=== PATIENT | female | born 1975 | race Caucasian/White ===

== ENCOUNTER 2018-07-14 11:50 | Observation (INO) | payer BC ==
--- NOTE | 2018-07-14 13:34 | RAD REPORT ---
EXAM DESCRIPTION: CT - Ct Stroke Brain Wo Cont - 07/14/2018 1:20 pm CLINICAL HISTORY: Numbness COMPARISON: None. TECHNIQUE: Computed axial tomography of the head was obtained. Unenhanced and enhanced images obtain ed. 50 cc Isovue-[address] scans are performed using dose optimization technique as appropriate and may include automated exposure control or mA/KV adjustment according to patient size. FINDINGS: An intracranial bleed is not seen . The ventricles are normal in caliber. No extra-axial fluid collection is noted. No abnormal enhancement seen Fluid within the sinuses/ mastoids is not seen. IMPRESSION: No acute intracranial abnormality is seen. If patient's symptoms persist MRI of the bra in would be recommended. Zana Barnes of the emergency room was notified at 1:29 p.m. on July 14, 2018
[2018-07-14 13:35] LABS: Absolute Lymphocytes (CBC) 2.6 K/uL (0.7-4.9); Absolute Monocytes 0.6 K/uL (0.1-1.3); Absolute Neutrophil 6.1 K/uL (1.8-8.0); Basophils % 0.5 % (0-1.3); Eosinophils % 1.9 % (0-4.4); Hematocrit 46.8 % (36.0-45.0); Lymphocytes % 27.1 % (15.3-44.8); MPV 10.8 fL (7.6-11.3); Monocytes % 6.3 % (3.3-12.3); RBC Red Blood Cell Count 5.44 M/uL (3.86-4.86)
[2018-07-14 13:38] LABS: Protime INR 0.89
[2018-07-14] MEDS ORDERED: METOPROLOL TAR 25 MG TAB ONE (13:49)
[2018-07-14] MEDS ORDERED: FOLIC ACID 5 MG/ML VIAL ONE (13:50)
[2018-07-14] MEDS ORDERED: NA CHLORIDE 0.9% 1,000 ML ONE (13:50)
[2018-07-14] MEDS ORDERED: ASPIRIN 81 MG CHEWABLE TABLET ONE (13:52)
--- NOTE | 2018-07-14 13:52 | RAD REPORT ---
EXAM DESCRIPTION: Skyler Single View07/14/2018 1:38 pm CLINICAL HISTORY: Chest pain COMPARISON: none FINDINGS: The lungs appear clear of acute infiltrate. The heart is probably upper limits normal siz e IMPRESSION: No acute abnormalities displayed
[2018-07-14 13:56] LABS: ALT/SGPT 24 U/L (12-78); AST/SGOT 15 U/L (15-37); Albumin 3.6 g/dL (3.4-5.0); Alkaline Phosphatase 87 U/L (45-117); BUN Blood Urea Nitrogen 11 mg/dL (7-18); Bicarbonate 25 mmol/L (21-32); Bilirubin Direct 0.1 mg/dL (0-0.2); Bilirubin Total 0.5 mg/dL (0.2-1.0); Glucose Level 91 mg/dL (74-106); Magnesium 2.6 mg/dL (1.8-2.4); NT PRO-BNP 247 pg/mL (<125); Potassium 4.2 mmol/L (3.5-5.1); Protein, Total 7.1 g/dL (6.4-8.2); Sodium Level 143 mmol/L (136-145); Troponin (Emerg Dept Use Only) < 0.02 ng/mL (0.0-0.045)
[2018-07-14 14:06] LABS: Urine Blood NEGATIVE (NEG); Urine Glucose NEGATIVE (NEG); Urine Protein NEGATIVE (NEG)
--- NOTE | 2018-07-14 14:29 | EDPHYS ---
Physician Documentation [facility] Name: Susan Motta Age: 43 yrs Sex: Female : 1975 Arrival Date: 07/14/2018 Time: 11:54 Bed 17 Private MD: ED Physician Claude Hood HPI: 07/14 13:15 This 43 yrs old Female presents to ER via Ambulatory with complaints of Chest cp Pressure, Numbness Of Arm. 13:15 The patient or guardian reports chest pain that is located primarily in the anterior cp chest wall, bilaterally. 13:15 Onset: this morning. cp 13:15 The patient's problem is reported as paresthesias, right hand. Onset: The cp symptoms/episode began/occurred this morning. Duration: The episode is continuous. 13:15 Patient here with friend who reports patient had episode this morning at approximately cp 1000 or 1030 where patient was talking on phone and speech was not coherent. Patient not able to recall how long speech was incoherent, but feels back to normal. PRE BILLING CLINICIAN: 12:00 LMP N/A - Im going thru menopause but i had a period about 3 months ago tw2 Historical: - Allergies: 12:02 No Known Allergies; tw2 - Home Meds: 12:02 None [Active]; tw2 - PMHx: 12:02 Hypertension; tw2 - PSHx: 12:02 Cholecystectomy; Tubal ligation; Hernia repair; tw2 - Immunization history:: Adult Immunizations. - Social history:: Smoking status: Patient uses tobacco products, smokes one pack cigarettes per day. - Ebola Screening: : Patient denies travel to an Ebola-affected area in the 21 days before illness onset. ROS: 13:20 Cardiovascular: Positive for chest pain, Negative for edema, palpitations. cp 13:20 Constitutional: Negative for body aches, chills, fever, poor PO intake. cp 13:20 ENT: Negative for drainage from ear(s), ear pain, sore throat, difficulty swallowing, difficulty handling secretions. 13:20 Respiratory: Negative for cough, shortness of breath, wheezing. 13:20 Abdomen/GI: Negative for abdominal pain, nausea, vomiting, and diarrhea. Exam: 13:25 Constitutional: The patient appears in no acute distress, alert, awake, cp non-diaphoretic, non-toxic, well developed, well nourished. 13:25 Head/Face: Normocephalic, atraumatic. Eyes: Pupils equal round and reactive to light, cp extra-ocular motions intact. Lids and lashes normal. Conjunctiva and sclera are non-icteric and not injected. Cornea within normal limits. Periorbital areas with no swelling, redness, or edema. ENT: Nares patent. No nasal discharge, no septal abnormalities noted. Tympanic membranes are normal and external auditory canals are clear. Oropharynx with no redness, swelling, or masses, exudates, or evidence of obstruction, uvula midline. Mucous membranes moist. Chest/axilla: Normal chest wall appearance and motion. Nontender with no deformity. No lesions are appreciated. 13:25 Cardiovascular: Rate: normal, Rhythm: regular, Pulses: Pulses are 2+ in right radial artery and left radial artery. Heart sounds: murmur, not appreciated, Edema: is not appreciated, JVD: is not appreciated. 13:25 Respiratory: the patient does not display signs of respiratory distress, Respirations: normal, no use of accessory muscles, no retractions, no splinting, no tachypnea, labored breathing, is not present, Breath sounds: are clear throughout, no decreased breath sounds, no stridor, no wheezing. 13:25 Abdomen/GI: Inspection: abdomen appears normal, Bowel sounds: active, all quadrants, Palpation: abdomen is soft and non-tender, in all quadrants. 13:25 Back: pain, is absent, ROM is normal. 13:25 Musculoskeletal/extremity: Exam is negative for calf tenderness, deformity, edema, injury. 13:25 Skin: no rash present. 13:25 Neuro: Orientation: is normal, Mentation: is normal, Cerebellar function: is grossly normal, Motor: moves all fours, strength is normal, Sensation: light touch is decreased in the right hand. 13:30 Radiologist reports: head CT negative for acute stroke cp Vital Signs: 12:00 BP 195 / 111; Pulse 84; Resp 17; Temp 98.2(TE); Pulse Ox 100% on R/A; Weight 108.86 kg tw2 (R); Pain 8/10; 13:31 BP 173 / 93; Pulse 72 MON; Resp 19; Pulse Ox 97% on R/A; sv 14:41 BP 154 / 78; Pulse 55 MON; Resp 13; Pulse Ox 99% ; sv 14:50 BP 171 / 96 RA Supine; em1 13:31 Sinus Rhythm sv 14:41 Sinus bradycardia sv NIH Stroke Scale Scores: 13:20 NIHSS Score: 1 cp 13:25 NIHSS Score: 1 sv MDM: 13:00 Patient medically screened. cp 13:30 Differential diagnosis: abnormal EKG, acute myocardial infarction, CVA, TIA. cp 13:35 ED course: VSS. NIH stroke at 1 due to paresthesias of right hand, will not administer cp tpa at this point but continue to monitor. 14:15 Data reviewed: vital signs, nurses notes, lab test result(s), EKG, radiologic studies, cp CT scan, plain films. 14:15 The patient was given aspirin in the Emergency Department. cp 14:15 ED course: Patient reports completely resolved at this time. cp 07/14 13:10 Order name: Basic Metabolic Panel; Complete Time: 14:12 cp 07/14 14:13 Interpretation: Normal except: CL 110. cp 07/14 13:10 Order name: CBC with Diff; Complete Time: 14:12 cp 07/14 13:10 Order name: LFT's; Complete Time: 14:12 cp 07/14 13:10 Order name: Magnesium; Complete Time: 14:12 cp 07/14 13:10 Order name: NT PRO-BNP; Complete Time: 14:12 cp 07/14 13:10 Order name: PT-INR; Complete Time: 14:12 cp 07/14 13:09 Order name: CT Stroke Brain w/o Contrast; Complete Time: 14:12 sv 07/14 13:10 Order name: Troponin (emerg Dept Use Only); Complete Time: 14:12 cp 07/14 13:44 Order name: Urine Dipstick--Ancillary (enter results); Complete Time: 14:12 bd 07/14 13:44 Order name: Urine --Ancillary (enter results); Complete Time: 14:12 bd 07/14 14:41 Order name: Urine Drug Screen EDVT 07/14 14:41 Order name: Thyroid Stimulating Hormone EDVT 07/14 14:41 Order name: Lipid Profile EDVT 07/14 14:41 Order name: Lipid Profile EDVT 07/14 13:10 Order name: XRAY Chest (1 view); Complete Time: 14:12 cp 07/14 13:10 Order name: EKG; Complete Time: 13:10 cp 07/14 13:10 Order name: Cardiac monitoring; Complete Time: 13:48 cp 07/14 13:10 Order name: EKG - Nurse/Tech; Complete Time: 13:48 cp 07/14 14:32 Order name: CONS Physician Consult [facility] 07/14 14:41 Order name: Occupational Therapy Consult [facility] 07/14 14:41 Order name: Physical Therapy Consult [facility] 07/14 14:41 Order name: Speech Therapy Consult [facility] 07/14 14:41 Order name: Carotid Artery Bilateral [facility] 07/14 14:41 Order name: NPO [facility] 07/14 14:41 Order name: Stroke Protocol [facility] 07/14 13:10 Order name: IV Saline Lock; Complete Time: 13:48 cp 07/14 13:10 Order name: Labs collected and sent; Complete Time: 13:48 cp 07/14 13:10 Order name: O2 Per Protocol; Complete Time: 13:48 cp 07/14 13:10 Order name: O2 Sat Monitoring; Complete Time: 13:48 cp 07/14 14:25 Order name: Blood Pressure Recheck: bilateral extremities; Complete Time: 14:51 cp Administered Medications: 13:47 Drug: foLIC Acid 1 mg Route: IVPB; Site: right antecubital; sv 13:48 Drug: NS 0.9% 1000 ml Route: IV; Rate: 1 bolus; Site: right antecubital; sv 14:55 Follow up: Response: No adverse reaction; IV Status: Completed infusion; IV Intake: sv 1000ml 13:48 Drug: Aspirin Chewable Tablet 324 mg Route: PO; sv 14:46 Follow up: Response: No adverse reaction sv 13:48 Drug: Metoprolol 25 mg Route: PO; sv 14:45 Follow up: Response: No adverse reaction; Blood pressure is lowered sv Point of Care Testing: Blood Glucose: 12:23 Blood Glucose: 89 mg/dL; sv Ranges: Critical Glucose Levels:Adult <50 mg/dl or >400 mg/dl <40 mg/dl or >180 mg/dl Disposition: 17:15 Chart complete. cp 17:19 Co-signature as Attending Physician, Claude Hood MD I agree with the assessment and kdr plan of care. Disposition: 07/14/18 14:28 Hospitalization ordered by Mike Thacker for Observation. Preliminary diagnosis are Transient cerebral ischemic attack, unspecified, Chest pain, unspecified. - Bed requested for Telemetry/MedSurg (observation). - Status is Observation. sv - Condition is Stable. - Problem is new. - Symptoms have improved. UTI on Admission? No NIH Stroke Scale - NIH Stroke Score Date: 07/14/2018 Time: 13:20 Total Score = 1 1a. Level of Consciousness (LOC) - 0(Alert) 1b. Level of Consciousness (LOC) (Year \T\ Age) - 0(Both) 1c. LOC Commands (Open \T\ Closes Eyes/Consulting Psychiatrist) - 0(Both) 2. Best Gaze (Lateral Gaze Paresis) - 0(Normal) 3. Visual Field Loss - 0(No visual loss) 4. Facial Palsy - 0(Normal) 5a. Left Arm: Motor (10-second hold) - 0(No drift) 5b. Right Arm: Motor (10-second hold) - 0(No drift) 6a. Left Leg: Motor (5-second hold - always test supine) - 0(No drift) 6b. Right Leg: Motor (5-second hold - always test supine) - 0(No drift) 7. Limb Ataxia (finger/nose \T\ heel/anderson - test with eyes open) - 0(Absent) 8. Sensory Loss (pinprick arms/legs/face) - 1(Mild to moderate loss) 9. Best Language: Aphasia (description/naming/reading) - 0(No aphasia) 10. Dysarthria (speech clarity - read or repeat words) - 0(Normal) 11. Extinction and Inattention (visual/tactile/auditory/spatial/personal) - 0(No abnormality) Initials: cp NIH Stroke Scale - NIH Stroke Score Date: 07/14/2018 Time: 13:25 Total Score = 1 1a. Level of Consciousness (LOC) - 0(Alert) 1b. Level of Consciousness (LOC) (Year \T\ Age) - 0(Both) 1c. LOC Commands (Open \T\ Closes Eyes/Consulting Psychiatrist) - 0(Both) 2. Best Gaze (Lateral Gaze Paresis) - 0(Normal) 3. Visual Field Loss - 0(No visual loss) 4. Facial Palsy - 0(Normal) 5a. Left Arm: Motor (10-second hold) - 0(No drift) 5b. Right Arm: Motor (10-second hold) - 0(No drift) 6a. Left Leg: Motor (5-second hold - always test supine) - 0(No drift) 6b. Right Leg: Motor (5-second hold - always test supine) - 0(No drift) 7. Limb Ataxia (finger/nose \T\ heel/anderson - test with eyes open) - 0(Absent) 8. Sensory Loss (pinprick arms/legs/face) - 1(Mild to moderate loss) 9. Best Language: Aphasia (description/naming/reading) - 0(No aphasia) 10. Dysarthria (speech clarity - read or repeat words) - 0(Normal) 11. Extinction and Inattention (visual/tactile/auditory/spatial/personal) - 0(No abnormality) Initials: sv Signatures: Dispatcher [employer] EDMS Taylor Jones Stephanie, RN RN sv Claude Hood MD MD [facility] Yovany Barnes PA PA Melissa Maldonado, GLENIS RN tw2 Corrections: (The following items were deleted from the chart) 13:19 13:10 Head Brain Wo Cont+CT.RAD.BRZ ordered. EDMS EDMS 16:35 14:28 Hospitalization Ordered by Mike Thacker MD for Observation. Preliminary bd diagnosis is Transient cerebral ischemic attack, unspecified; Chest pain, unspecified. Bed requested for Telemetry/MedSurg (observation). Status is Observation. Condition is Stable. Problem is new. Symptoms have improved. UTI on Admission? No. cp 17:03 16:35 07/14/2018 14:28 Hospitalization Ordered by Mike Thacker MD for sv Observation. Preliminary diagnosis is Transient cerebral ischemic attack, unspecified; Chest pain, unspecified. Bed requested for Telemetry/MedSurg (observation). Status is Observation. Condition is Stable. Problem is new. Symptoms have improved. UTI on Admission? No. bd
--- NOTE | 2018-07-14 14:29 | ER ---
Nurse's Notes [facility] Name: Susan Motta Age: 43 yrs Sex: Female : 1975 Arrival Date: 07/14/2018 Time: 11:54 Bed 17 Private MD: Diagnosis: Transient cerebral ischemic attack, unspecified;Chest pain, unspecified Presentation: 07/14 11:59 Presenting complaint: Patient states: i just feel funny, it started this morning, my tw2 chest feels like i have something sitting on it, my head hurts really bad, i feel like my heart is beating really hard, my right finger tips feel numb, and i feel nauseous. Transition of care: patient was not received from another setting of care. Onset of symptoms was July 14, 2018. Risk Assessment: Do you want to hurt yourself or someone else? Patient reports no desire to harm self or others. Initial Sepsis Screen: Does the patient meet any 2 criteria? No. Patient's initial sepsis screen is negative. Does the patient have a suspected source of infection? No. Patient's initial sepsis screen is negative. Care prior to arrival: None. 11:59 Method Of Arrival: Ambulatory tw2 11:59 Acuity: ORTIZ 3 tw2 13:31 Acuity: ORTIZ 2 sv Triage Assessment: 12:01 General: Appears in no apparent distress. Behavior is anxious. Pain: Complains of pain tw2 in chest. Cardiovascular: Reports palpitations, shortness of breath, "pressure". GI: Reports nausea. ASSISTED LIVING ASSISTANT: 12:00 LMP N/A - Im going thru menopause but i had a period about 3 months ago tw2 Historical: - Allergies: 12:02 No Known Allergies; tw2 - Home Meds: 12:02 None [Active]; tw2 - PMHx: 12:02 Hypertension; tw2 - PSHx: 12:02 Cholecystectomy; Tubal ligation; Hernia repair; tw2 - Immunization history:: Adult Immunizations. - Social history:: Smoking status: Patient uses tobacco products, smokes one pack cigarettes per day. - Ebola Screening: : Patient denies travel to an Ebola-affected area in the 21 days before illness onset. Screenin:17 Abuse screen:. Abuse screen: Denies threats or abuse. Denies injuries from another. sv Nutritional screening: No deficits noted. Tuberculosis screening: No symptoms or risk factors identified. Fall Risk None identified. Assessment: 13:15 Reassessment: Code Stroke called. sv 13:15 General: Appears in no apparent distress. uncomfortable, well groomed, well developed, sv Behavior is calm, cooperative, appropriate for age. Pain: Complains of pain in top of head and forehead and anterior chest pain Pain does not radiate. Pain currently is 8 out of 10 on a pain scale. Quality of pain is described as pressure, Pain began around [id number] today Is continuous. Neuro: Level of Consciousness is awake, alert, obeys commands, Oriented to person, place, time, situation, Public Accountant are equal bilaterally Moves all extremities. Full function Gait is steady, Speech is normal, Facial symmetry appears normal, Facial symmetry: tongue is midline, Reports headache frontal area, numbness in right thumb, right middle finger, right ring finger, right little finger and Right index finger "my right hand feels cold as well." Spouse stated that when she called her on her way to come home for lunch the pt was talking differently.. Respiratory: Airway is patent Respiratory effort is even, unlabored, Respiratory pattern is regular, symmetrical, Denies shortness of breath. Derm: Skin is pink, warm \\T\\ dry. 14:00 Reassessment: Patient appears in no apparent distress at this time. No changes from sv previously documented assessment. Patient and/or family updated on plan of care and expected duration. Pain level reassessed. Patient is alert, oriented x 3, equal unlabored respirations, skin warm/dry/pink. 15:56 Reassessment: Patient appears in no apparent distress at this time. No changes from sv previously documented assessment. Patient and/or family updated on plan of care and expected duration. Pain level reassessed. Patient is alert, oriented x 3, equal unlabored respirations, skin warm/dry/pink. Vital Signs: 12:00 BP 195 / 111; Pulse 84; Resp 17; Temp 98.2(TE); Pulse Ox 100% on R/A; Weight 108.86 kg tw2 (R); Pain 8/10; 13:31 BP 173 / 93; Pulse 72 MON; Resp 19; Pulse Ox 97% on R/A; sv 14:41 BP 154 / 78; Pulse 55 MON; Resp 13; Pulse Ox 99% ; sv 14:50 BP 171 / 96 RA Supine; em1 13:31 Sinus Rhythm sv 14:41 Sinus bradycardia sv NIH Stroke Scale Scores: 13:20 NIHSS Score: 1 cp 13:25 NIHSS Score: 1 sv ED Course: 11:54 Patient arrived in ED. mr 12:00 Triage completed. tw2 12:00 Arm band placed on. EKG completed in triage. Results shown to MD. tw2 12:12 EKG done, by environmental compliance technician. dt2 12:23 Initial lab(s) drawn, by me, sent to lab. Inserted saline lock: 20 gauge in right sv antecubital area, using aseptic technique. Blood collected. Flushed right antecubital with 5 ml normal saline. Patient maintains SpO2 saturation greater than 95% on room air. 13:00 Yovany aBrnes PA is PHCP. cp 13:00 Claude Hood MD is Attending Physician. cp 13:08 Ayleen Waddell, GLENIS is Primary Nurse. sv 13:15 Patient has correct armband on for positive identification. Placed in gown. Bed in low sv position. Call light in reach. Adult w/ patient. 13:[address] via stretcher. sv 13:20 CT Stroke Brain w/o Contrast In Process Unspecified. EDMS 13:[address] Patient [address] back from CT. sv 13:32 X-ray(s) taken. sv 13:38 XRAY Chest (1 view) In Process Unspecified. EDMS 14:28 Mike Thacker MD is Hospitalizing Provider. cp 14:46 Awaiting bed assignment. sv 16:45 No provider procedures requiring assistance completed. Patient admitted, IV remains in sv place. intact. Administered Medications: 13:47 Drug: foLIC Acid 1 mg Route: IVPB; Site: right antecubital; sv 13:48 Drug: NS 0.9% 1000 ml Route: IV; Rate: 1 bolus; Site: right antecubital; sv 14:55 Follow up: Response: No adverse reaction; IV Status: Completed infusion; IV Intake: sv 1000ml 13:48 Drug: Aspirin Chewable Tablet 324 mg Route: PO; sv 14:46 Follow up: Response: No adverse reaction sv 13:48 Drug: Metoprolol 25 mg Route: PO; sv 14:45 Follow up: Response: No adverse reaction; Blood pressure is lowered sv Point of Care Testing: Blood Glucose: 12:23 Blood Glucose: 89 mg/dL; sv Ranges: Intake: 14:55 IV: 1000ml; Total: 1000ml. sv Outcome: 14:28 Decision to Hospitalize by Provider. cp 16:44 Admitted to Tele accompanied by tech, family with patient, via wheelchair, room 429, sv with chart, Report called to Kian GALVNI 16:44 Condition: stable 16:44 Instructed on the need for admit. 17:03 Patient left the ED. sv NIH Stroke Scale - NIH Stroke Score Date: 07/14/2018 Time: 13:20 Total Score = 1 1a. Level of Consciousness (LOC) - 0(Alert) 1b. Level of Consciousness (LOC) (Year \\T\\ Age) - 0(Both) 1c. LOC Commands (Open \\T\\ Closes Eyes/Archival Studies Professor) - 0(Both) 2. Best Gaze (Lateral Gaze Paresis) - 0(Normal) 3. Visual Field Loss - 0(No visual loss) 4. Facial Palsy - 0(Normal) 5a. Left Arm: Motor (10-second hold) - 0(No drift) 5b. Right Arm: Motor (10-second hold) - 0(No drift) 6a. Left Leg: Motor (5-second hold - always test supine) - 0(No drift) 6b. Right Leg: Motor (5-second hold - always test supine) - 0(No drift) 7. Limb Ataxia (finger/nose \\T\\ heel/anderson - test with eyes open) - 0(Absent) 8. Sensory Loss (pinprick arms/legs/face) - 1(Mild to moderate loss) 9. Best Language: Aphasia (description/naming/reading) - 0(No aphasia) 10. Dysarthria (speech clarity - read or repeat words) - 0(Normal) 11. Extinction and Inattention (visual/tactile/auditory/spatial/personal) - 0(No abnormality) Initials: cp NIH Stroke Scale - NIH Stroke Score Date: 07/14/2018 Time: 13:25 Total Score = 1 1a. Level of Consciousness (LOC) - 0(Alert) 1b. Level of Consciousness (LOC) (Year \\T\\ Age) - 0(Both) 1c. LOC Commands (Open \\T\\ Closes Eyes/Archival Studies Professor) - 0(Both) 2. Best Gaze (Lateral Gaze Paresis) - 0(Normal) 3. Visual Field Loss - 0(No visual loss) 4. Facial Palsy - 0(Normal) 5a. Left Arm: Motor (10-second hold) - 0(No drift) 5b. Right Arm: Motor (10-second hold) - 0(No drift) 6a. Left Leg: Motor (5-second hold - always test supine) - 0(No drift) 6b. Right Leg: Motor (5-second hold - always test supine) - 0(No drift) 7. Limb Ataxia (finger/nose \\T\\ heel/anderson - test with eyes open) - 0(Absent) 8. Sensory Loss (pinprick arms/legs/face) - 1(Mild to moderate loss) 9. Best Language: Aphasia (description/naming/reading) - 0(No aphasia) 10. Dysarthria (speech clarity - read or repeat words) - 0(Normal) 11. Extinction and Inattention (visual/tactile/auditory/spatial/personal) - 0(No abnormality) Initials: sv Signatures: Dispatcher [employer] Ayleen To RN RN sv Shira Sinclair, [place] em1 Yovany Barnes PA PA Melissa Maldonado, GLENIS RN tw2 Shaneka Silver dt2 Corrections: (The following items were deleted from the chart) 16:45 16:45 Patient did not have IV access during this emergency room visit. sv sv
--- NOTE | 2018-07-14 15:34 | RAD REPORT ---
EXAM DESCRIPTION: US - CP - 07/14/2018 3:10 pm CLINICAL HISTORY: TIA, slurred speech COMPARISON: None. TECHNIQUE: Real-time sonographic evaluation of both carotid systems was performed. Johnson scale and Do ppler interrogation were performed with waveform tracing bilaterally. FINDINGS: Normal high resistance waveforms are noted in both external carotid arteries. The common c arotid arteries and internal carotid arteries show normal low resistance waveforms. Minimal plaquing changes are identifiable. The mid right internal carotid artery shows an elevated ve locity 116 cm/second. However, this is suspected to be artifact of technique and tortuosity of the mi d ICA. On visual inspection there is no significant disease at this site. This elevated velocity also creates artifactual elevation of the ICA/ CCA ratio. Velocity values and ratios on the left are with in normal range. Antegrade flow seen in both vertebral arteries. Velocity values and ratios were recorded and are retained in the patient's imaging records. IMPRESSION: Minimal atherosclerotic change in the right internal carotid artery. No evidence of a hemodynamically significant stenosis. The pronounced tortuosity of the midportion ri ght internal carotid artery creates artifactual velocity elevation.
[2018-07-14] MEDS: NA CHLORIDE 0.9% 1,000 ML IV SCH (17:26)
--- NOTE | 2018-07-14 17:47 | EKG ---
Test Date: 2018-07-14 Test Time: 12:02:[address] Magistrate: MICH MEASUREMENT RESULTS: Intervals: Rate: 81 MA: 128 QRSD: 92 QT: 384 QTc: 446 [place]: P: 20 MA: 128 QRS: -28 T: 33 INTERPRETIVE STATEMENTS: Normal sinus rhythm Possible Left atrial enlargement Borderline ECG No previous ECG available for comparison Electronically Signed On 07-14-18 17:46:19 CDT by Arsalan Garcia
[2018-07-14] MEDS ORDERED: PNEUMOCOCCAL VACCINE 0.5 ML IMVAC ONE (18:00)
[2018-07-14 18:51] LABS: Urine Appearance CLEAR; Urine Bilirubin NEGATIVE (NEG); Urine Blood NEGATIVE (NEG); Urine Color YELLOW; Urine Glucose NEGATIVE (NEG); Urine Protein NEGATIVE (NEG); Urine pH 6.5 (5.0-7.0)
[2018-07-14 18:56] LABS: Urine Microscopic Reflex ORDER UMIC
[2018-07-14 19:49] LABS: Urine Bacteria 20-50 /HPF (<20); Urine Culture Reflex Order NOT NEEDED; Urine RBC NONE SEEN /HPF (NONE SEEN)
[2018-07-14] MEDS ORDERED: LORazepam 2 MG/ML VIAL IV ONE (20:23)
[2018-07-14] MEDS ORDERED: ATORVASTATIN 40 MG TAB PO SCH (21:00)
--- NOTE | 2018-07-14 22:25 | P.HP ---
Certification for Inpatient Patient admitted to: Observation With expected LOS: <2 Midnights Practitioner: I am a practitioner with admitting privileges, knowledge of patient current condition, hospital course, and medical plan of care. Services: Services provided to patient in accordance with Admission requirements found in Title 42 Section 412.3 of the Code of Federal Regulations Patient History Date of Service: 07/14/18 Reason for admission: Chest pressure, speech alteration History of Present Illness: This is a 43 yr old female with no past medical history who presented with symptoms of chest pressure, arm numbness and some speech abnormalities. Patient states that she was in her usual state of health until a few days ago when she noticed that she started with headaches. She occassionally checked her BP and found it to be elevated to the 150's-180's systolic. This would improve with relaxation. The morning prior to admission, she was not "feeling right." She was feeling more tired than usual along with feeling weakness. She also complained of chest pressure. She described it as if someone was sitting on her chest along with a burning sensation. This resolved but when she was on the phone, she stated that she felt like she could not speak right and could not really gather her thoughts. She thought she did not make any sense on the phone. This scared her and her brought her to the ED. In the ED, her symptoms had resolved, though her BP continued to remain in the 170's systolic. Her labs were unremarkable, Her CT of the head was negative for anything acute. She was given BP medications (metoprolol) and IVF. At the time of my exam, she was AAOx3, in no acute distress and symptom free. Her BP was 171/96. She denies taking any medications though states that she was on some BP med at some point in distant past which she stopped taking a "while ago." She was admitted for possible TIA and further evaluation. She does endorse being a 1 PPD cigarette smoker for the past 20 yrs. Allergies No Known Allergies Allergy (Verified 07/14/18 14:54) Home Medications: NK [No Home Meds] 07/14/18 - Past Medical/Surgical History -: Hypertension -: cholecystectomy -: tubal ligation -: hernia repair - Social History Smoking Status: Current every day smoker Alcohol use: Yes CD- Drugs: No Caffeine use: Yes Place of Residence: Home Review of Systems 10-point ROS is otherwise unremarkable Physical Examination - Vital Signs Temperature: 99 F Blood Pressure: 155/99 Pulse: 64 Respirations: 18 Pulse Ox (%): 99 - Physical Exam General: Alert, In no apparent distress, Oriented x3 HEENT: Atraumatic, PERRLA, Mucous membr. moist/pink, EOMI, Sclerae nonicteric Neck: Supple, 2+ carotid pulse no bruit, No LAD, Without JVD or thyroid abnormality Respiratory: Clear to auscultation bilaterally, Normal air movement Cardiovascular: Regular rate/rhythm, Normal S1 S2 Gastrointestinal: Normal bowel sounds, No tenderness Musculoskeletal: No tenderness Integumentary: No rashes Neurological: Normal gait, Normal speech, Normal strength at 5/5 x4 extr, Normal tone, Normal affect Lymphatics: No axilla or inguinal lymphadenopathy - Studies Laboratory Data (last 24 hrs) 07/14/18 13:23: PT 10.6, INR 0.89 07/14/18 13:23: WBC 9.5, Hgb 15.4 H, Hct 46.8 H, Plt Count 189 07/14/18 13:23: Sodium 143, Potassium 4.2, BUN 11, Creatinine 0.66, Glucose 91, Magnesium 2.6 H, Total Bilirubin 0.5, AST 15, ALT 24, Alkaline Phosphatase 87 Assessment and Plan - Problems (Diagnosis) (1) TIA (transient ischemic attack) Current Visit: Yes Status: Suspected (2) Hypertensive urgency Current Visit: Yes Status: Acute (3) Hypertension Current Visit: Yes Status: Acute Qualifiers: Hypertension type: essential hypertension Qualified Code(s): I10 - Essential (primary) hypertension (4) Nicotine dependence Current Visit: Yes Status: Chronic Qualifiers: Nicotine product type: cigarettes Substance use status: uncomplicated Qualified Code(s): F17.210 - Nicotine dependence, cigarettes, uncomplicated (5) Morbid obesity Current Visit: Yes Status: Chronic - Plan Admit to floor for Observation Start asa, statin and folic acid. Strict BP control - start lisinopril. She will likely need an Rx for lisinopril on discharge Educated on smoking cessation, 5 minutes. MRI, MRA, brain/neck ordered, pending Carotid ultrasound ordered, pending Lipid panel, TSH levels pending. Educated on lifestyle modifications including diet/exercise, 5 minutes Patient now back to baseline, asymptomatic. No speech, OT or PT at this time. No evidence of aspiration. Will start heart healthy diet Disposition: Pending further testing as above. If negative, likely discharge home in the next 24 hours. Discharge Plan: Home Plan to discharge in: 24 Hours - Advance Directives Does patient have a Living Will: No Does patient have a Durable POA for Healthcare: No Time Spent Managing Pts Care (In Minutes): 55
[2018-07-15] MEDS: NA CHLORIDE 0.9% 1,000 ML IV SCH (03:53)
[2018-07-15 05:12] LABS: Absolute Lymphocytes (CBC) 3.1 K/uL (0.7-4.9); Absolute Monocytes 0.6 K/uL (0.1-1.3); Absolute Neutrophil 4.7 K/uL (1.8-8.0); Basophils % 0.2 % (0-1.3); Eosinophils % 3.1 % (0-4.4); Hematocrit 42.7 % (36.0-45.0); Lymphocytes % 35.4 % (15.3-44.8); MPV 10.8 fL (7.6-11.3); Monocytes % 6.5 % (3.3-12.3); RBC Red Blood Cell Count 4.93 M/uL (3.86-4.86)
[2018-07-15 05:24] LABS: ALT/SGPT 21 U/L (12-78); AST/SGOT 11 U/L (15-37); Alkaline Phosphatase 74 U/L (45-117); BUN Blood Urea Nitrogen 10 mg/dL (7-18); Bicarbonate 25 mmol/L (21-32); Bilirubin Total 0.4 mg/dL (0.2-1.0); Glucose Level 91 mg/dL (74-106); HDL Cholesterol 36 mg/dL (40-60); LDL Cholesterol, Calculated 117 (<130); Potassium 3.9 mmol/L (3.5-5.1); Sodium Level 144 mmol/L (136-145)
[2018-07-15] MEDS ORDERED: POTASSIUM CL SA 10 MEQ TAB PO ONE (05:26)
[2018-07-15] MEDS: LISINOPRIL 10 MG TAB PO SCH ×2 (08:58→11:44)
[2018-07-15] MEDS ORDERED: FOLIC ACID 1 MG TABLET PO SCH (09:00)
--- NOTE | 2018-07-15 09:18 | RAD REPORT ---
EXAM DESCRIPTION: MRI - Brain W/Wo Cont - 07/14/2018 9:22 pm CLINICAL HISTORY: speech changes Headache, drowsiness, CVA COMPARISON: MRA Head Wo Cont dated 07/14/2018; Ct Stroke Brain Wo Cont dated 07/14/2018 TECHNIQUE: Multi-sequence, multiplanar MR imaging of the brain was performed with contrast. FINDINGS: No intracranial hemorrhage, hydrocephalus, or extra-axial fluid collection. No edema or sh ift of midline structures. No intracranial mass. DWI is negative for acute CVA. The midline structures are normally formed. Mastoid air cells and paranasal sinuses are clear. Post-contrast images show no abnormal enhancement to suggest tumor or infection. IMPRESSION: No acute or concerning intracranial abnormalities. No pathologic post-contrast enhancement suspected.
--- NOTE | 2018-07-15 09:26 | RAD REPORT ---
EXAM DESCRIPTION: MRI - MRA Head Wo Cont - 07/14/2018 9:23 pm CLINICAL HISTORY: Speech changes Headache, drowsiness, CVA/ TIA symptomology COMPARISON: Ct Stroke Brain Wo Cont dated 07/14/2018 FINDINGS: 3D noncontrast [id number] MR angiography of the [place] was performed. No aneurysm, flow-limiting stenosis or vascular malformation is seen. Forward flow seen in codominant vertebral arteries. The visualized dural venous sinuses appear patent. IMPRESSION: No significant flow abnormality of the [place] is identified.
--- NOTE | 2018-07-15 09:28 | RAD REPORT ---
EXAM DESCRIPTION: MRI - MRA Neck W/Wo Cont - 07/14/2018 9:22 pm CLINICAL HISTORY: speech changes Headache, drowsiness, CVA symptomology. COMPARISON: Carotid Artery Bilateral dated 07/14/2018 FINDINGS: Contrast enhance 2D [id number] MR angiography of the neck vessels was performed. A left aortic arch is identified. Normal branching pattern of the great vessels seen. Subclavian criss janny and common carotid arteries bilaterally show no significant flow alteration. No significant internal carotid artery stenosis suspected bilaterally. There is minimal soft plaquing involving the right carotid bulb. Antegrade flow seen in both vertebral arteries. IMPRESSION: No significant flow abnormality of the neck vessels identified.
[2018-07-15] MEDS ORDERED: ACETAMINOPHEN 325 MG TABLET ONE (11:43)
[2018-07-15] MEDS ORDERED: ACETAMINOPHEN 500 MG TAB PO PRN (12:19)
--- NOTE | 2018-07-15 16:22 | P.SSS ---
Patient History Date of Service: 07/15/18 Reason for admission: Chest pressure, speech alteration History of Present Illness: This is a 43 yr old female with no past medical history who presented with symptoms of chest pressure, arm numbness and some speech abnormalities. Patient states that she was in her usual state of health until a few days ago when she noticed that she started with headaches. She occassionally checked her BP and found it to be elevated to the 150's-180's systolic. This would improve with relaxation. The morning prior to admission, she was not "feeling right." She was feeling more tired than usual along with feeling weakness. She also complained of chest pressure. She described it as if someone was sitting on her chest along with a burning sensation. This resolved but when she was on the phone, she stated that she felt like she could not speak right and could not really gather her thoughts. She thought she did not make any sense on the phone. This scared her and her brought her to the ED. In the ED, her symptoms had resolved, though her BP continued to remain in the 170's systolic. Her labs were unremarkable, Her CT of the head was negative for anything acute. She was given BP medications (metoprolol) and IVF. At the time of my exam, she was AAOx3, in no acute distress and symptom free. Her BP was 171/96. She denies taking any medications though states that she was on some BP med at some point in distant past which she stopped taking a "while ago." She was admitted for possible TIA and further evaluation. She does endorse being a 1 PPD cigarette smoker for the past 20 yrs. Allergies No Known Allergies Allergy (Verified 07/14/18 14:54) Home Medications: Atorvastatin Calcium [Lipitor] 40 mg PO BEDTIME #30 tab 07/15/18 Lisinopril [Prinivil*] 20 mg PO DAILY #30 tab 07/15/18 - Past Medical/Surgical History -: Hypertension -: cholecystectomy -: tubal ligation -: hernia repair - Social History Smoking Status: Current every day smoker Alcohol use: Yes CD- Drugs: No Caffeine use: Yes Place of Residence: Home Physical Examination - Vital Signs Temperature: 98.3 F Blood Pressure: 193/94 Pulse: 71 Respirations: 16 Pulse Ox (%): 97 - Diagnosis (Problem(s)) (1) TIA (transient ischemic attack) Current Visit: Yes Status: Suspected (2) Hypertensive urgency Current Visit: Yes Status: Acute (3) Hypertension Current Visit: Yes Status: Acute Qualifiers: Hypertension type: essential hypertension Qualified Code(s): I10 - Essential (primary) hypertension (4) Nicotine dependence Current Visit: Yes Status: Chronic Qualifiers: Nicotine product type: cigarettes Substance use status: uncomplicated Qualified Code(s): F17.210 - Nicotine dependence, cigarettes, uncomplicated (5) Morbid obesity Current Visit: Yes Status: Chronic Treatment Summary: Admitted to floor for Observation Started asa, statin and folic acid. Strict BP control - Blood pressure was uncontrolled. She was started on lisinopril. Her blood pressure continued to be elevated. We increased her lisinopril to 20 mg daily. Her blood pressure responded well to that change. She was discharged home on lisinopril 20 mg daily. Educated on smoking cessation, 5 minutes. Patient did continue to go downstairs during the stay. Her room also did smell like cigarettes. MRI, MRA, brain/neck negative for any abnormalities. Carotid ultrasound also negative. Educated on lifestyle modifications including diet/exercise, 10 minutes Patient otherwise remained stable throughout the stay. She has no more episodes of chest pain or pressure and no more episodes of speech abnormalities. She was provided with a list of PCPs in the area and advised to establish care with a physician. She was also explained on how to check BP at home and record on a log shee tto take with her to her PCP appointment. She was discharged home in a safe and stable manner. - Disposition Discharge Date: 07/15/18 Disposition: ROUTINE DISCHARGE Condition: GOOD Patient Discharge Instructions: Please follow up with a primary care physician in 1 week. A list has been provided to you. As discussed, it is very important that you follow up with a primary care physician. New medications: Lisinopril ( Blood pressure medication), atorvastatin. Please return to the Emergency Room for worsening symptoms. Diet: AHA Activity: Ad betsey Time Spent Managing Pts Care (In Minutes): 55
[2018-07-15 18:41] LABS: Barbiturates NEGATIVE (NEGATIVE); Benzodiazepines NEGATIVE (NEGATIVE); Cocaine NEGATIVE (NEGATIVE); METHAMPHETAM NEGATIVE (NEGATIVE); Methadone NEGATIVE (NEGATIVE); Opiates NEGATIVE (NEGATIVE); Phencyclidine NEGATIVE (NEGATIVE); THC Cannibis NEGATIVE (NEGATIVE)
--- NOTE | 2018-07-15 22:54 | CON ---
Reason For Consultation: Consultation called because of possible transient ischemic attack. History Of Present Illness: Ms. Motta is a 43-year-old, right-handed patient with hypert ension, who comes in with transient right hand and face tingling, weakness along with aphasia. The p josé's female friend in the room indicated that prior to coming to the hospital around 3 days, she had off and on difficulty with expression and some right-sided arm pressure and numbness along with c hest pressure and numbness. Those symptoms became worse yesterday and she was brought to [facility] by her friend. Blood pressures were found to have elevation in systolic around 180. She di d say that the symptoms fluctuate and did have a burning component in the chest. Head CT scan done a t 1 o'clock yesterday on the showed no acute ischemic or hemorrhagic change. Subsequent brain M RI on the showed no acute ischemic or hemorrhagic change. Her neck MRA and brain MRI showed no significant abnormalities. Her carotid artery ultrasound study showed no hemodynamically significant stenosis. There was pronounced tortuosity in the midportion of the right internal carotid artery, w hich created some artifact. Her electrocardiogram showed normal sinus rhythm with possible left atri al enlargement. Complete blood count with differential is essentially unremarkable. Coagulation [place] el, normal. Chemistries, essentially unremarkable, except slightly elevated chloride of 110. Magnes ium was slightly elevated to 106. Her cholesterol panel showed HDL cholesterol of 36, LDL cholestero l of 117. TSH was normal. Liver function studies otherwise normal. Urinalysis showed trace esteras e and little bit of bacteria. Urine drug screen is still pending. She was actually given Prinivil in the emergency room to lower her blood pressure and then admitted f or further workup. Since hospitalization, she has received Lipitor 40 mg at bedtime along with folic acid and the Prinivil. Past Medical History: As indicated above with hypertension. Surgical History: Cholecystectomy, tubal ligation, hernia repair. Allergies: NO KNOWN DRUG ALLERGIES. Social History: Smoked 1/2 pack cigarettes a day for over 20 years and uses alcohol regularly and [facility] caffeinated beverages as well. Family History: Noncontributory. Review of Systems: She denies any recent fevers or chills or any nausea, vomiting, myalgias, arthralgias, rash, weight c hange, headache, psychiatric issues, genitourinary or gastrointestinal issues. Physical Examination: Vital Signs: Blood pressure ranged from 139-193/81-94, pulse ranged from 71-79, respiratory rate 14- 18, temperature 98.3, oxygen saturation 97%, weight 248 pounds, height 5 feet and 2 inches, BMI 45.4. General: Ms. Motta is resting in bed comfortably. She is in no acute distress. HEENT: She is normocephalic, atraumatic. Sclerae are anicteric. Oropharynx is moist and pink. Neck: Supple. Chest: Clear. Heart: Regular. Extremities: Show no edema, cyanosis, or clubbing. Neurological: She is alert and oriented to person, place, time, and situation. She has no expressiv e or receptive aphasias. Cranial nerves 2 through 12 are intact by exam. Motor, she has 5/5 strengt h proximally and distally in the extremities. Sensory exam, intact to light touch and temperature in the arms and legs. Coordination, intact in upper and lower extremities. Gait is intact for stance, stride and arm swing and reflexes are 2+ in upper and lower extremities. Assessment: Ms. Motta is a 43-year-old patient with possible transient ischemic attacks in the set ting of hypertension and some slight elevation in her low-density lipoprotein along with a long histo ry of cigarette smoking. Plan: 1.The patient is instructed to stop smoking cigarettes. 2.Aspirin 81 mg daily. 3.Folate 1 mg daily. 4.Lipitor 40 mg at bedtime. 5.Prinivil 20 mg daily. 6.Follow up with Dr. Hampton in 1 month after discharge. 7.We will initiate stroke in the young labs when the patient is in clinic. MARTIN/JOSSELYN Voice ID: [id number] Report ID: [id number]
[2018-07-16] MEDS ORDERED: LISINOPRIL 20 MG TAB PO SCH (09:00)
== END 2018-07-15 19:35 | disposition home or self-care (01) ==
LOC: ER 11:50 → ERHOLD 14:48 → 4TH 16:46
PROVIDERS: ADMIT Family Medicine; ATTEND Family Medicine
DX: I16.0 Hypertensive urgency (principal); I10 Essential (primary) hypertension; F17.210 Nicotine dependence, cigarettes, uncomplicated; E66.01 Morbid (severe) obesity due to excess calories; Z68.42 Body mass index [BMI] 45.0-49.9, adult; Z71.3 Dietary counseling and surveillance; Z23 Encounter for immunization
CPT/HCPCS: 36415; 70450; 70544; 70549; 70553; 71045; 80048; 80053; 80061; 80076; 80307; 81003; 81015; 81025; 82962; 83735; 83880; 84443; 84484; 85025; 85610; 87086; 87088; 93005; 93880; 96361; 96374; 99285; A9577; G0378; J7030